=== PATIENT | male | born 1955 | race Caucasian/White ===

== ENCOUNTER 2016-11-19 15:32 | Observation (INO) ==
--- NOTE | 2016-11-19 17:23 | PROVIDER DOCUMENTATION ---
HPI-General Adult - General Chief Complaint: General Adult Stated Complaint: feeding tube leaking Time Seen by Provider: 11/19/16 16:52 Allergies/Adverse Reactions: Patient Allergies Allergy/AdvReac Type Severity Reaction Status Date / Time No Known Allergies Allergy Verified 09/15/14 11:56 Home Medications: Home Medication List Medication Instructions Recorded Confirmed Last Taken Type Alendronate Sodium [Fosamax] 70 mg PO FR 09/15/14 01/10/16 01/04/16 History 70 Allopurinol 300 mg PO DAILY 09/15/14 01/10/16 01/09/16 07:00 History 300 Esomeprazole Magnesium [Nexium] 40 mg PO DAILY 09/15/14 01/10/16 01/09/16 07:00 History 40 Folic Acid 1 mg PO DAILY 09/15/14 01/10/16 01/09/16 07:00 History 1 Montelukast Sodium [Singulair] 10 mg PO DAILY 09/15/14 01/10/16 01/09/16 07:00 History 10 PRAVAstatin [Pravachol] 40 mg PO DAILY 09/15/14 01/10/16 01/09/16 07:00 History 40 LISINOpril [Prinivil] 10 mg PO DAILY 01/09/16 01/10/16 01/09/16 07:00 History 10 - History of Present Illness -Gen Adult Nature of Presenting Problems: 61 yo WM with PMH of throat cancer presents to ED with leakage from feeding tube. Pt and Pt's report that the feeding tube has been more difficult to flush and slower over last week. Pt describes leakage from tube after flushing approximately 4 hours ago. Pt's home health nurse called his throat cancer/ feeding tube physician Dr. Steve Rodas ([phone]) at [facility] and was told to go to local ER. Pt describes a sharp deep pain upon flushing tube. He only reports mild discomfort around area at rest. Pt reports the pain is worse when coughing or leaning on his sides in a sitting position. Past History - Adult - PAST MEDICAL HISTORY-ADULT Cardiovascular: reports: HTN Other Conditions: reports: other cancer (throat), other (wagners dz) - PRIOR SURGERIES/PROCEDURES Surgical/Procedure History: reports: other (vestectomy) - IMMUNIZATION STATUS Childhood Immunizations: See Nurse Assessment Flu Vaccine: See Nurse Assessment Progress - PLAN OF CARE/RESULTS Progress/Plan/Lab Results: Vital Signs - 8 hr 11/19/16 15:35 Temperature 97.4 F L Pulse Rate 94 H Respiratory Rate 16 Blood Pressure 141/72 O2 Sat by Pulse Oximetry 100 Departure - Departure Referrals and Follow-Ups: Elliot Alex [Primary Care Provider] -
[2016-11-19] MEDS ORDERED: XYLOCAINE 1% ONE (18:58)
[2016-11-19] MEDS ORDERED: D5 NS 1,000 ML IV ONE (19:29)
[2016-11-19] MEDS ORDERED: PROTONIX IV ONE (19:29)
[2016-11-19] MEDS ORDERED: SODIUM CHLORIDE 0.9% INJ ONE (19:29)
--- NOTE | 2016-11-19 19:51 | PROVIDER DOCUMENTATION ---
This chart was entered by Kiran Camara Scribe, acting as scribe for Shen Coats PA. HPI-General Adult - General Chief Complaint: General Adult Stated Complaint: feeding tube leaking Time Seen by Provider: 11/19/16 16:52 Source: patient, family Allergies/Adverse Reactions: Patient Allergies Allergy/AdvReac Type Severity Reaction Status Date / Time No Known Allergies Allergy Verified 09/15/14 11:56 Home Medications: Home Medication List Medication Instructions Recorded Confirmed Last Taken Type Alendronate Sodium [Fosamax] 70 mg PO FR 09/15/14 11/19/16 01/04/16 History 70 Allopurinol 300 mg PO DAILY 09/15/14 11/19/16 01/09/16 07:00 History 300 Esomeprazole Magnesium [Nexium] 40 mg PO DAILY 09/15/14 11/19/16 01/09/16 07:00 History 40 Folic Acid 1 mg PO DAILY 09/15/14 11/19/16 01/09/16 07:00 History 1 Montelukast Sodium [Singulair] 10 mg PO DAILY 09/15/14 11/19/16 01/09/16 07:00 History 10 PRAVAstatin [Pravachol] 40 mg PO DAILY 09/15/14 11/19/16 01/09/16 07:00 History 40 LISINOpril [Prinivil] 10 mg PO DAILY 01/09/16 11/19/16 01/09/16 07:00 History 10 - History of Present Illness -Gen Adult Nature of Presenting Problems: patient is a 61 y/o M that presents needing evaluation of feeding tube. family reports tube feeding being harder to push. patient hasn't had it evaluated in months. No other symptoms, no redness or swelling to site. Pt has peg/trach in place following surgery for neck cancer in August. The peg tube is his only means of receiving nutrition/medications. Family states that it has become extremely difficult to push anything through the tube and they stated that today there was "leakage" from the site. They called [facility] and were told that they could not be seen in clinic today and were told to go to the ED. Location of Pain/Injury: reports: none Pain Radiation: reports: no radiation Quality of Pain: reports: none Severity: reports: mild Onset/Duration: reports: gradual, other (a week or two) Timing: reports: still present, constant Context/Activities at Onset: reports: none Modifying Factors: improves with: nothing Associated Symptoms: denies: constipation, diaphoresis, diarrhea, fever/chills, genitourinary problems, nausea, vomiting Similar Symptoms Previously?: No Recently seen or treated by another doctor?: No Review of Systems - Adult - REVIEW OF SYSTEMS - ADULT Constitutional: denies: chills, fever Eyes: reports: no symptoms reported Ears, Nose, Mouth & Throat: reports: no symptoms reported Cardiovascular: denies: chest pain, edema, palpitations, syncope Respiratory: denies: shortness of breath, wheezing Gastrointestinal: reports: see HPI Genitourinary: reports: no symptoms reported Musculoskeletal: reports: no symptoms reported Integumentary: reports: no symptoms reported Neurological: reports: no symptoms reported Psychiatric: reports: no symptoms reported Endocrine: reports: no symptoms reported Hematologic/Lymphatic: reports: no symptoms reported Allergic/Immunologic: reports: no symptoms reported All Other Systems: Reviewed and Negative Past History - Adult - PAST MEDICAL HISTORY-ADULT Review of Records: reports: Old Records Reviewed, Nursing Assessment Review, Medications Reviewed Cardiovascular: reports: HTN Genitourinary: reports: cancer (throat) Other Conditions: reports: other (wagners dz) - PRIOR SURGERIES/PROCEDURES Surgical/Procedure History: reports: indwelling device (feeding tube), other ( vastectomy) - IMMUNIZATION STATUS Childhood Immunizations: See Nurse Assessment Flu Vaccine: See Nurse Assessment - FAMILY HISTORY Family History: reviewed, not pertinent - SOCIAL HISTORY Smoking: non-smoker Living Situation: family Physical Exam-General - PHYSICAL EXAM-ADULT Initial Vital Signs Reviewed: Yes - CONSTITUTIONAL General Appearance: alert, no apparent distress - EYES Eyes: PERRL/EOMI, pink conjunctivae - HEAD, EARS, NOSE, MOUTH & THROAT HENMT: normocephalic/atraumatic, moist mucous membranes, normal ENT inspection - NECK Neck: full range of motion, normal inspection - RESPIRATORY Respiratory: lungs clear, normal breath sounds, no respiratory distress, no accessory muscle use - CARDIOVASCULAR Cardiovascular: regular rate, rhythm, no edema, no murmur - GASTROINTESTINAL (ABDOMEN) Abdominal Exam: normal bowel sounds, non tender, soft, no organomegaly, no pulsatile mass, other (feeding tube noted, no redness or swelling or signs of infection) - MUSCULOSKELETAL Extremity: normal range of motion, normal inspection, no calf tenderness, normal capillary refill - SKIN Integumentary: normal color, normal turgor, warm/dry. negative: blanching, cyanosis, ecchymosis, erythema - NEUROLOGIC Neurologic: grossly normal, no motor/sensory deficits - PSYCHIATRIC Psych/Mental Status: normal mood/affect, normal thought content, normal thought process, oriented x 3 Progress - PLAN OF CARE/RESULTS Progress/Plan/Lab Results: Vital Signs - 8 hr 11/19/16 15:35 Temperature 97.4 F L Pulse Rate 94 H Respiratory Rate 16 Blood Pressure 141/72 O2 Sat by Pulse Oximetry 100 Peg tube can't be located in hospital. Family updated, Alba Cath will be placed and patient will follow up with at [facility] tomorrow. I attempted to deflate the balloon and was unsuccessful multiple times. I talked c Dr. Charles and he came and evaluated the pt at bedside c me. An attempt was made to cut the tubing to deflate and this did not work. Dr Charles then tried to locate the balloon through ultrasound and deflate the balloon c a needle. This was also unsuccessful. We will consult GI for further care. Pt has tolerated well and is in no pain. - CONSULTS/PCP/HOSPITALIST Notification #1 *Consult/PCP/Hospitalist*: Dr. Magaña Time Discussed: 19:20 Consult Disposition: Admit (Will take pt to OR tomorrow. Requested admission to hospitalist service.) #2 Consult: Dr. Darius Teran Discussed: 19:50 Consult Disposition: Admit Departure - Departure Time of Disposition Decision: 19:50 DIAGNOSIS: PEG tube malfunction, Leaking PEG tube Disposition: ADMITTED INPATIENT 09 Certified Medical Emergency: Emergent Condition: Stable Referrals and Follow-Ups: Elliot Alex [Primary Care Provider] - - Critical Care Note This patient required my direct personal management.: No Attestation - Physician/ AMADOR Attestation Patient care was provided by Advanced Practice Provider:: Yes Advanced Practice Provider:: Shen Coats Advanced Practice Provider documentation review:: The Mid-level provider documentation, treatment plan and medical decision making was reviewed by the physician who agrees with all treatment and medical decision making by the P. The physician spent face to face time with patient:: Yes Advanced Practice Provider documentation review:: The physician spent face to face time with this patient and agrees with all MLP documentation, treatment, and medical decision making by the MLP. See provider notes for further information. This chart was documented by the indicated scribe, (Kiran Camara, [place]) and accurately reflects the services I performed and decisions made by Jorge L oates Steven Wesley, PA, as attested by the provider's signature.
[2016-11-19 20:19] LABS: BASO% 0.1 % (0.0-0.8); EOS# 0.05 X1000 (0.0-0.7); EOS% 0.6 % (0.0-10.0); HEMATOCRIT 34.1 % (42.0-52.0); HEMOGLOBIN 11.2 g/dL (14.0-18.0); IMM GRAN# 0.02 X1000 (0.0-0.04); IMM GRAN% 0.2 % (0.0-0.5); LYMPH# 0.54 X1000 (1.2-3.4); LYMPH% 6.2 % (20.5-51.1); MANUAL DIFF NEEDED? NO; MCH 29.6 PG (27-31); MCHC 32.8 g/dL (33-37); MCV 90.2 FL (81-99); MONO# 0.43 X1000 (0.11-0.59); MONO% 4.9 % (1.7-9.3); MPV 10.3 FL (7.4-10.4); PLT 253 X1000 (130-400); RBC 3.78 XMIL (4.7-6.1)
[2016-11-19 20:22] LABS: INR 0.97; PROTIME 10.2 Seconds (9.2-11.7); PTT 29.4 Seconds (22.0-36.0)
[2016-11-19 20:36] LABS: URINE CULTURE NEEDED? NO; URINE MICRO REVIEW NEEDED? NO; URINE SOURCE CLEAN CATCH
[2016-11-19 20:43] LABS: ALBUMIN 4.2 g/dL (3.5-5.0); CALCIUM 10.3 mg/dL (8.8-10.2); POTASSIUM 4.6 mmol/L (3.5-5.1); TOTAL BILIRUBIN 0.36 mg/dL (0.20-1.00); TOTAL PROTEIN 8.4 g/dL (6.3-8.3)
[2016-11-19 20:56] LABS: BILIRUBIN URINE NEGATIVE (NEGATIVE); BLOOD URINE NEGATIVE (NEGATIVE); COLOR YELLOW; GLUCOSE URINE NEGATIVE (NEGATIVE); LEUKOCYTES URINE NEGATIVE (NEGATIVE); NITRITE URINE NEGATIVE (NEGATIVE); PH URINE 6.5; PROTEIN URINE 50 mg/dL (NEGATIVE); SP GRAVITY URINE 1.018; TURBIDITY URINE CLEAR (CLEAR); UR EPITHELIAL CELLS <10 /HPF (<10); URINE BACTERIA NEGATIVE /HPF; URINE RBC <10 /HPF (<10); URINE WBC <10 /HPF (<10); UROBILINOGEN URINE NORMAL (NORMAL)
[2016-11-19] MEDS: NS 1,000 ML IV SCH (23:40)
--- NOTE | 2016-11-20 01:16 | HISTORY AND PHYSICAL ---
PRIMARY CARE PHYSICIAN: Abdirashid Alex MD. CHIEF COMPLAINT: PEG tube not working. HISTORY OF PRESENTING ILLNESS: This is a 61-year-old male with a history of Madiha's granulomatosis, throat cancer, chronic kidney disease, who apparently went for reconstructive throat surgery about a month ago, and had a PEG tube placement. At that time, it seemed to be working properly. Over the past several days, as per his , the tube seemed not to be functioning right. The patient not able to talk due to his throat surgery, and most of the history is obtained from his . At the time of my examination, the patient had denied any headache, fever, chills, chest pain, shortness of breath, hemoptysis, melena, or any weight changes. The patient's also states that the PEG tube was placed at [facility] in [place], and when they called there, they asked her to come to the local ER for evaluation of the PEG tube. PAST MEDICAL HISTORY: Includes throat cancer, Madiha's granulomatosis, chronic kidney disease, hypertension, not on any medicines. PAST SURGICAL HISTORY: Status post PEG placement, reconstructive surgery on his throat, left hip replacement. ALLERGIES: Cipro. CURRENT MEDICATIONS: As listed in the MAR. SOCIAL HISTORY: He is a former smoker. Admits to social alcohol use. Denies any illicit drug use. FAMILY HISTORY: No history of coronary artery disease. REVIEW OF SYSTEMS: Limited, and was elicited as in HPI. All other systems negative. PHYSICAL EXAMINATION: GENERAL: The patient is resting comfortably. VITAL SIGNS: Temperature 97.4 degrees, pulse 94, respirations 16, blood pressure 141/72. HEENT: Atraumatic, normocephalic. PERRLA. NECK: Surgical wound noted. CHEST: Clear to auscultation. CARDIOVASCULAR: Regular rate and rhythm. ABDOMEN: Soft. PEG tube seen. EXTREMITIES: No edema. NEUROLOGIC: He is awake, alert, oriented x3. GENITOURINARY: No bladder distention. SKIN: Warm. Good turgor. LABORATORIES AND STUDIES: WBCs 8.72, hemoglobin 11.2, hematocrit 34.1, platelets 253,000. Sodium 134, potassium 4.6, chloride 93, CO2 28, BUN is 32, creatinine 1.3, glucose is 101. ASSESSMENT: A 61-year-old male with a history of a Madiha's granulomatosis, chronic kidney disease, and throat cancer, status post reconstructive surgery on his throat, and subsequently had a PEG tube placement. It seems that the PEG tube is malfunctioning. The patient will need to be admitted for evaluation by gastroenterology for further management. 1. Status post PEG tube malfunction. 2. Throat cancer, status post reconstructive surgery. 3. History of Amdiha's granulomatosis. 4. Chronic kidney disease. PLAN: 1. We will admit patient to medical floor. 2. Continue with IV fluids, and consult gastroenterology. 3. We will obtain records from his previous hospitalizations. 4. Monitor his renal function. 5. Put patient on DVT prophylaxis with SCDs. 6. We will continue to follow and reassess. cc: Myron Mccoy MD
[2016-11-20 06:15] LABS: MANUAL DIFF NEEDED? NO
[2016-11-20 06:22] LABS: BASO% 0.3 % (0.0-0.8); EOS# 0.13 X1000 (0.0-0.7); EOS% 1.9 % (0.0-10.0); HEMATOCRIT 30.5 % (42.0-52.0); HEMOGLOBIN 9.9 g/dL (14.0-18.0); LYMPH# 0.69 X1000 (1.2-3.4); LYMPH% 10.2 % (20.5-51.1); MCH 29.8 PG (27-31); MCHC 32.5 g/dL (33-37); MCV 91.9 FL (81-99); MONO% 8.9 % (1.7-9.3); MPV 10.3 FL (7.4-10.4); NEUT% 78.7 % (42.2-75.2); PLT 212 X1000 (130-400); RBC 3.32 XMIL (4.7-6.1)
[2016-11-20 06:39] LABS: CALCIUM 9.2 mg/dL (8.8-10.2); POTASSIUM 4.1 mmol/L (3.5-5.1)
[2016-11-20] MEDS ORDERED: SODIUM CHLORIDE 0.9% INJ ONE (06:56)
[2016-11-20] MEDS: PROTONIX IV SCH ×2 (08:21→18:51)
[2016-11-20] MEDS ORDERED: KETAMINE (DOSE) ONE (09:59)
[2016-11-20] MEDS ORDERED: VERSED ONE (10:36)
[2016-11-20] MEDS ORDERED: XYLOCAINE-MPF 2% ONE (11:04)
[2016-11-20] MEDS ORDERED: LR 1,000 ML ONE (11:04)
[2016-11-20] MEDS ORDERED: ANESTHESIA PB SET 88 IN 5742 ONE (11:06)
[2016-11-20] MEDS ORDERED: SODIUM CHLORIDE 0.9% 10 ML ONE (12:40)
--- NOTE | 2016-11-20 13:16 | OPERATIVE NOTE ---
PROCEDURE DATE : 11/20/2016 REFERRING PHYSICIAN: Dr. Theodore. PRIMARY DOCTOR: Elliot Alex MD. PRIMARY RECONSTRUCTIVE ENT SURGEON: Dr. Leno Berrios at [facility]. PRIMARY ONCOLOGIST: At [facility]. TITLE OF PROCEDURE: Esophagogastroduodenoscopy with PEG tube replacement. PREOPERATIVE DIAGNOSIS: 1. PEG tube dysfunction for the last 24 hours, unable to get tube feeds and nutrition and water and medications. Came to the ER last evening with the above symptoms. 2. 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 Leno Berrios on 10/16/2016, status post trach placement and status post esophageal patency catheter placement at [facility]. I called and discussed with the nurse for the oncologist at [facility] and with Dr. Leno Arvizu at [facility] by phone, and they agreed with me proceeding with EGD with PEG tube replacement. POSTOPERATIVE DIAGNOSIS: 1. Secretions, oral mucosa and oropharyngeal area, which were suctioned out. Skin graft noted on the base of the tongue extending all the way to the laryngeal opening causing mild obstruction to the passage of EGD scope. 2. Rubber red esophageal patency catheter noted in the proximal esophagus which extended all the way into the stomach body, which is noted. 3. Evidence of prior PEG tube site was noted on the anterior stomach wall. We could not identify the internal bumper there. It was likely pulled out in the tract per the manipulation in the ER last night. 4. Evidence of some gastric polyps noted. 5. No evidence of pyloric stenosis noted. 6. Normal duodenal bulb and second portion of the duodenum. 7. The old PEG was removed by gentle traction and the replacement PEG tube, 18-Swedish, was passed into the tract and was seen entering the stomach and inflated with 20 mL of sterile saline. External bumper was marked at 4 cm. ESTIMATED BLOOD LOSS: None. COMPLICATIONS: None. ANESTHESIA: Monitored anesthesia care by anesthesiologist. SPECIMENS COLLECTED: None. DESCRIPTION OF PROCEDURE: After informed consent from the patient and family and explaining the risks, benefits, indications and alternatives, the patient was prepped for EGD with PEG tube placement. The risks of the procedure included infection, bleeding, pain, trauma to the surrounding structures, perforation, and were explained to the patient and family among others. The acknowledged understanding and agreed to proceed with the procedure. The patient was brought to the OR, turned in supine position. He was given monitored anesthesia care by the anesthesiologist. The bite block was placed in the mouth. The external PEG tube site was visualized. It was cleaned and draped. The upper scope was gently introduced to the oral vestibule, advanced all the way into the second portion of the duodenum through the esophagus. The oropharyngeal area had mild difficulty with passage of the scope because of skin graft and laryngectomy and laryngeal reconstructive surgery. The esophageal rubber patency catheter was in the proximal esophagus, red color, which was noted entering the proximal esophagus and it extended all the way to the proximal stomach body. The GE junction was visualized. The scope was advanced to the stomach where we did not visualize any internal bumper from the PEG tube. It was likely in the tract because of the recent manipulation of the PEG tube by the ER. The stomach was carefully inflated and visualized. There was evidence of polyps noted in the stomach, likely hyperplastic or fundic gland. The pylorus was patent. The first and the second portion of the duodenum appeared normal. The scope was advanced to the stomach, and at that time direct visualization being started, the stomach was inflated, and we removed the previous PEG by gentle traction. The area was cleaned and draped under sterile conditions, and the replacement 18-Swedish PEG was placed under direct visualization, 20 mL of sterile saline was then injected in the balloon. The external bumper was marked at 4 cm. The external bumper site was cleaned and Bactroban ointment was placed. The air was aspirated, the scope withdrawn. The patient tolerated the procedure well, is currently being monitored in the OR in stable condition. I discussed the findings with the patient's daughter by phone. All questions were answered. RECOMMENDATIONS: 1. The patient will be on Prilosec once daily on discharge. 2. The PEG tube is okay to use. We will call a Nutrition consultation for PEG tube feeding. 3. The patient will continue aspiration precautions, although he does not have any laryngeal inlet. He has a trach. 4. PEG tube care as before. Keep the site clean and dry. 5. The patient will call the office with any questions. 6. The patient will continue to follow up with Dr. Leno Berrios at [facility] and with Oncology at [facility]. The above plan was explained to the patient's family and all questions were answered. cc: MD Elliot Prabhakar MD Dr. Benjamin Greene, MD
--- NOTE | 2016-11-20 16:02 | PROGRESS NOTE ---
DATE: 11/20/2016 SUBJECTIVE: Today, Mr. Mock referred to be doing relatively fine. He just came back from replacement of his PEG tube. OBJECTIVE: Vital signs: Blood pressure is 138/82, pulse of 95, respirations 14, temperature 97.9 degrees. General: Mr. Mock a 61-year-old male. He was in bed, not seemingly distressed. HEENT: Mucosa is pink and moist. Anicteric. Acyanotic. He is nonverbal. Neck: The patient has a tracheostomy tube in place. Chest: Clear. Cardiovascular: Regular rate and rhythm. Abdomen: Soft. There is an newly inserted PEG tube. There is mild bleeding around the entrance site. Extremities: No pedal edema. Central Nervous System: Patient is alert and oriented. He is nonverbal, but is able to write on a board by his bedside. LABORATORY DATA: WBC is 6.79, hemoglobin 9.9, platelet count of 212,000. Chemistry is reviewed and completely normal except for creatinine of 1.3, which does not seem to be new. ASSESSMENT: 1. Percutaneous endoscopic gastrostomy tube dysfunction. This has been replaced by Dr. Spencer. We are going to use this today. If it is functioning without any problem, we might be able to discharge the patient tomorrow. 2. History of throat cancer, status post reconstructive surgery. Patient follows up with his physicians at [facility]. 3. Chronic kidney disease noted. 4. History of Madiha granulomatosis. In general, Mr. Mock is status post PEG tube placement. He is doing fine. Dietitian has already seen him. We are pending recommendations to use the tube. If it is functioning without any problem, will be able to discharge the patient home first thing in the morning. Patient we will continue his care with Dr. Leno Arvizu at [facility] and with Oncology Department also at [facility]. cc: Joce Theodore MD
[2016-11-20] MEDS: NS 1,000 ML IV SCH ×2 (17:38→20:30)
[2016-11-21] MEDS: NS 1,000 ML IV SCH (03:20)
[2016-11-21] MEDS: PROTONIX IV SCH (07:52)
[2016-11-21 08:07] VITALS: BP 137/57
--- NOTE | 2016-12-02 12:20 | DISCHARGE SUMMARY ---
ADMISSION DATE: 11/19/2016 DISCHARGE DATE: 11/21/2016 DISPOSITION: Home. FOLLOWUP: 1. Dr. Magaña. 2. Dr. Leno Berrios at [facility] and also Oncology Department at [facility]. CONSULTATIONS: GI was consulted. The patient was seen by Dr. Magaña. INVASIVE PROCEDURES PERFORMED: EGD with PEG tube replacement was done by Dr. Magaña on 11/20/2016. ADMITTING DIAGNOSES: 1. Status post PEG tube malfunction. 2. Throat cancer, status post reconstruction surgery. 3. History of Madiha's. DISCHARGE DIAGNOSES: 1. Percutaneous PEG tube dysfunction status post replacement. 2. History of throat cancer, status post reconstruction surgery. 3. Chronic kidney disease. 4. History of Madiha's granulomatosis. 5. Dyslipidemia. 6. Hypothyroidism. DISCHARGE MEDICATIONS: 1. Allopurinol 300 p.o. daily. 2. Alendronate 17 mg in PEG tube daily. 3. Nexium 40 mg in PEG tube daily. 4. Lisinopril 10 mg daily. 5. Docusate. 6. Levothyroxine 100 mcg in PEG tube daily. 7. Ranitidine. 8. Tamsulosin 0.4 mg daily. PRESENTING COMPLAINT: PEG tube malfunctioning. HISTORY OF PRESENT ILLNESS: Mr. Mock is a 61-year-old male with a history of Madiha's granulomatosis, throat cancer. The patient normally follows up in [place]. He came to the ER because the PEG tube was not functioning. Upon presentation, the patient was evaluated and was deemed necessary to admit him and get GI to evaluate the PEG tube. HOSPITAL COURSE: The patient did pretty well during the short hospital stay. GI was consulted. The patient was seen by Dr. Magaña. PEG tube was evaluated. EGD and PEG tube replacement was done by Dr. Magaña. The patient tolerated the procedure without any complication and was observed overnight. PEG tube was used without any complications. On the following day, the patient was doing fine. Vitals were stable. He was therefore discharged to follow up with his regular physicians in [place]. At the time of discharge, there were no pending labs or imaging studies. Time spent for discharge was 37 minutes. cc: Joce Theodore MD
== END 2016-11-21 14:43 | disposition home or self-care (01) ==
LOC: ED 15:32 → INTOOBSV 23:56 → SUATTDRO 23:56 → 4N 23:56
PROVIDERS: ATTEND Internal Medicine